=== PATIENT | male | born 2000 | race American Indian/Alaskan Native ===

== ENCOUNTER 2020-08-13 12:38 | Emergency (ER) | payer BC ==
[2020-08-13 12:54] VITALS: BP 146/62
--- NOTE | 2020-08-13 13:23 | Emergency Department Report ---
ED Male HPI - General Chief complaint: Urogenital-Male Stated complaint: TESTICLES BREAKOUT Time Seen by Provider: 08/13/20 13:20 Source: patient Mode of arrival: Ambulatory Limitations: No Limitations - History of Present Illness Initial comments: This is a pleasant 19-year-old male presents the emergency department chief complaint of intermittent pain to the top of the left testicle over the past 2 days. He denies any dysuria, frequency, or urgency, penile discharge, fever, chills, night sweats, headache, dizziness, or vision, nausea,, diarrhea, chest pain, shortness of breath. He denies any recent unprotected partners sexually and denies any concern about exposure to STD. - Related Data Allergies Allergy/AdvReac Type Severity Reaction Status Date / Time No Known Allergies Allergy Unverified 08/13/20 12:48 ED Review of Systems ROS: Stated complaint: TESTICLES BREAKOUT Other details as noted in HPI Comment: All other systems reviewed and negative Constitutional: denies: chills, fever Eyes: denies: eye pain, eye discharge, vision change ENT: denies: ear pain, throat pain Respiratory: denies: cough, shortness of breath, wheezing Cardiovascular: denies: chest pain, palpitations Endocrine: no symptoms reported Gastrointestinal: denies: abdominal pain, nausea, diarrhea Genitourinary: as per HPI, testicular pain. denies: urgency, dysuria Musculoskeletal: denies: back pain, joint swelling, arthralgia Skin: denies: rash, lesions Neurological: denies: headache, weakness, paresthesias Psychiatric: denies: anxiety, depression Hematological/Lymphatic: denies: easy bleeding, easy bruising ED Past Medical Hx - Past Medical History Previous Medical History?: No - Surgical History Past Surgical History?: No ED Physical Exam - General Limitations: No Limitations General appearance: alert, in no apparent distress - Head Head exam: Present: atraumatic, normocephalic - Eye Eye exam: Present: normal appearance, PERRL, EOMI Pupils: Present: normal accommodation - ENT ENT exam: Present: normal exam, normal orophraynx, mucous membranes moist - Neck Neck exam: Present: normal inspection, full ROM. Absent: tenderness, meningismus - Respiratory Respiratory exam: Present: normal lung sounds bilaterally. Absent: respiratory distress, wheezes, rales, rhonchi, stridor - Cardiovascular Cardiovascular Exam: Present: regular rate, normal rhythm, normal heart sounds. Absent: systolic murmur, diastolic murmur, rubs, gallop - GI/Abdominal GI/Abdominal exam: Present: soft, normal bowel sounds. Absent: distended, tenderness, guarding, rebound, rigid - Rectal Rectal exam: Present: deferred - exam: Present: normal inspection, vertical testicular lie. Absent: testicular tenderness, urethral discharge, scrotal swelling External exam: Present: normal external exam - Extremities Exam Extremities exam: Present: normal inspection, full ROM, normal capillary refill. Absent: tenderness, calf tenderness - Back Exam Back exam: Present: normal inspection, full ROM. Absent: tenderness, CVA tenderness (R), CVA tenderness (L) - Neurological Exam Neurological exam: Present: alert, oriented X3, normal gait - Psychiatric Psychiatric exam: Present: normal affect, normal mood - Skin Skin exam: Present: warm, dry, intact, normal color. Absent: rash ED Course Vital Signs 08/13/20 12:53 Temperature 97.8 F Pulse Rate 62 Respiratory 20 Rate Blood Pressure 146/62 [Right] O2 Sat by Pulse 97 Oximetry - Reevaluation(s) Reevaluation #1: 08/13/20 13:23 Patient pointed to the epididymis of the location of his pain. He had normal vertical testicular lie and have a low suspicion for torsion. I did order a testicular ultrasound to confirm this. He is not concerned about any STD work- up at this time but I did order urinalysis in the work-up of epididymitis or epididymal cyst. Reevaluation #2: 08/13/20 15:04 After multiple calls from ultrasound the patient was found to have eloped from the emergency department Critical care attestation.: If time is entered above; I have spent that time in minutes in the direct care of this critically ill patient, excluding procedure time. ED Disposition Clinical Impression: Testicular pain, left Disposition: Z-07 ELOPED Is pt being admited?: No Condition: Stable Time of Disposition: 15:05
[2020-08-13 14:26] LABS: Bilirubin,Urine NEG (Negative); Blood,Urine NEG (Negative); Color,Urine Yellow (Yellow); Mucus,Urine 3+ /HPF; Protein,Urine <15 mg/dL mg/dL (Negative); Urobilinogen,Urine < 2.0 mg/dL (<2.0)
--- NOTE | 2020-08-13 17:02 | Ultrasound Report ---
ULTRASOUND SCROTUM INDICATION / CLINICAL INFORMATION: left testicular pain. COMPARISON: None available. FINDINGS -- RIGHT TESTIS: Size = 3.7 x 2.2 x 2.9 cm. - Appearance: No significant abnormality. - Cyst or Mass: None. - Color Doppler Flow: No significant abnormality. EPIDIDYMIS: No significant abnormality. HYDROCELE: None. VARICOCELE: None demonstrated. FINDINGS -- LEFT TESTIS: Size = 3.8 x 2.0 x 3.2 cm. - Appearance: No significant abnormality. - Cyst or Mass: None. - Color Doppler Flow: No significant abnormality. EPIDIDYMIS: No significant abnormality. Small epididymal cyst HYDROCELE: None. VARICOCELE: None demonstrated. ADDITIONAL FINDINGS: None. IMPRESSION: 1. Very small epididymal cyst Signer Name: Zach Larios MD Signed: 08/13/2020 4:58 PM Workstation Name: [id number]
[2020-08-13] MEDS ORDERED: LIDOCAINE-MPF (1%) 10 MG/1 ML VIAL 5 ML INFILTRATI ONE (17:41)
[2020-08-13] MEDS ORDERED: AZITHROMYCIN 250 MG TAB PO ONE (17:41)
--- NOTE | 2020-08-13 17:42 | Emergency Department Report ---
ED Male HPI - General Chief complaint: Urogenital-Male Stated complaint: TESTICLES BREAKOUT Time Seen by Provider: 08/13/20 13:20 Source: patient Mode of arrival: Ambulatory Limitations: No Limitations - History of Present Illness Initial comments: Patient was seen in the emergency department earlier today but had eloped. He complained of pain to the left testicle and feeling as if he had a bump on the epididymis. His testicular exam was unremarkable. He was waiting on ultrasound and could not be found but then returned later. - Related Data Allergies Allergy/AdvReac Type Severity Reaction Status Date / Time No Known Allergies Allergy Unverified 08/13/20 12:48 ED Review of Systems ROS: Stated complaint: TESTICLES BREAKOUT Other details as noted in HPI Constitutional: denies: chills, fever Eyes: denies: eye pain, eye discharge, vision change ENT: denies: ear pain, throat pain Respiratory: denies: cough, shortness of breath, wheezing Cardiovascular: denies: chest pain, palpitations Endocrine: no symptoms reported Gastrointestinal: denies: abdominal pain, nausea, diarrhea Genitourinary: as per HPI, testicular pain. denies: urgency, dysuria Musculoskeletal: denies: back pain, joint swelling, arthralgia Skin: denies: rash, lesions Neurological: denies: headache, weakness, paresthesias Psychiatric: denies: anxiety, depression Hematological/Lymphatic: denies: easy bleeding, easy bruising ED Past Medical Hx - Past Medical History Previous Medical History?: No - Surgical History Past Surgical History?: No - Social History Smoking Status: Never Smoker Substance Use Type: None ED Physical Exam - General Limitations: No Limitations General appearance: alert, in no apparent distress - Head Head exam: Present: atraumatic, normocephalic - Eye Eye exam: Present: normal appearance - ENT ENT exam: Present: mucous membranes moist - Neck Neck exam: Present: normal inspection - Respiratory Respiratory exam: Present: normal lung sounds bilaterally. Absent: respiratory distress - Cardiovascular Cardiovascular Exam: Present: regular rate, normal rhythm. Absent: systolic murmur, diastolic murmur, rubs, gallop - GI/Abdominal GI/Abdominal exam: Present: soft, normal bowel sounds - Rectal Rectal exam: Present: deferred - exam: Present: normal inspection. Absent: testicular tenderness, urethral discharge, scrotal swelling, vertical testicular lie - Extremities Exam Extremities exam: Present: normal inspection - Back Exam Back exam: Present: normal inspection - Neurological Exam Neurological exam: Present: alert, oriented X3 - Psychiatric Psychiatric exam: Present: normal affect, normal mood - Skin Skin exam: Present: warm, dry, intact, normal color. Absent: rash ED Course Vital Signs 08/13/20 12:53 Temperature 97.8 F Pulse Rate 62 Respiratory 20 Rate Blood Pressure 146/62 [Right] O2 Sat by Pulse 97 Oximetry ED Medical Decision Making - Radiology Data Radiology results: report reviewed, image reviewed Ultrasound Report Signed Patient: ARJUN ASCENCIO MR#: [id number] : 2000 Acct:[id number] Age/Sex: 19 / M ADM Date: 08/13/20 Loc: ED Attending Dr: Ordering Physician: FARRAH KIM Date of Service: 08/13/20 Procedure(s): US testicular doppler comp Accession Number(s): [id number] cc: FARRAH KIM ULTRASOUND SCROTUM INDICATION / CLINICAL INFORMATION: left testicular pain. COMPARISON: None available. FINDINGS -- RIGHT TESTIS: Size = 3.7 x 2.2 x 2.9 cm. - Appearance: No significant abnormality. - Cyst or Mass: None. - Color Doppler Flow: No significant abnormality. EPIDIDYMIS: No significant abnormality. HYDROCELE: None. VARICOCELE: None demonstrated. FINDINGS -- LEFT TESTIS: Size = 3.8 x 2.0 x 3.2 cm. - Appearance: No significant abnormality. - Cyst or Mass: None. - Color Doppler Flow: No significant abnormality. EPIDIDYMIS: No significant abnormality. Small epididymal cyst HYDROCELE: None. VARICOCELE: None demonstrated. ADDITIONAL FINDINGS: None. IMPRESSION: 1. Very small epididymal cyst Signer Name: Zach Larios MD Signed: 08/13/2020 4:58 PM Workstation Name: [id number] Transcribed By: MARY Dictated By: Zach Larios MD Electronically Authenticated By: Zach Lairos MD Signed Date/Time: 08/13/20 6258 - Medical Decision Making Ultrasound showed a left epididymal cyst and mild fluid to bilateral testicles. Urine showed an increase in white blood cells. We will treat the patient with Rocephin, azithromycin and discharged home with outpatient urology follow-up. Patient verbalized understand these instructions and all his questions were answered. - Differential Diagnosis Epididymitis, epididymal cyst, testicular torsion Critical care attestation.: If time is entered above; I have spent that time in minutes in the direct care of this critically ill patient, excluding procedure time. ED Disposition Clinical Impression: Testicular pain, left Disposition: DC-01 TO HOME OR SELFCARE Is pt being admited?: No Condition: Stable Instructions: Testicular Self-Exam, [id number] Referrals: PRIMARY CARE, [Primary Care Provider] - 3-5 Days TREVER FLORES MD [Staff Physician] - 3-5 Days Time of Disposition: 17:42
== END 2020-08-13 18:35 | disposition home or self-care (01) ==
LOC: ED 12:38
DX: N50.812 Left testicular pain (principal)
CPT/HCPCS: 81001; 87086; 93975; 96372; 99284; J0696